=== PATIENT | female | born 1985 | race Caucasian/White ===

== ENCOUNTER 2017-04-03 21:18 | Emergency (ER) | payer MEDICAID ==
--- NOTE | 2017-04-03 21:22 | ED Physician Chart ---
Chief Complaint/HPI - Patient Information Date Seen:: 04/03/17 Time Seen:: 21:21 Chief Complaint:: abdominal pain History of Present Illness:: 31-year-old female complains of acute, constant, worse with bowel movement, aching, moderate to severe, radiating to the groin area, left lower quadrant abdominal pain 3 days. Has associated nausea but no vomiting. Has had similar symptoms in the past and has had full workup but she is unsure what the diagnosis was. Says that with diet she's been to control her pain however she has not been following her diet for the past several weeks. Allergies:: Allergies Allergy/AdvReac Type Severity Reaction Status Date / Time MDX No Known Allergies - Nka Allergy Verified 12/10/15 13:16 Historian:: Patient Review:: Nurse's Note Reviewed Review of Systems - Review of Systems Other: Complete system review otherwise unremarkable except as noted in history of present illness. Past Medical History - Past Medical History Past Medical History: Other (unspecified GI disorder) Family History: None Social History: Smoker, No Alcohol, No Drug Use, Other Surgical History: other Psychiatricy History: None Medication: None Family Medical History - Family Member Mother History Unknown: Yes Ethnicity: Non- Physical Exam - Physical Examination Other:: INITIAL VITAL SIGNS: Reviewed by me GENERAL: Alert and interactive. No acute distress HEAD: Head is normocephalic and atraumatic EYES: EOMI. PERRL. No scleral icterus. No conjunctival injection ENT: Moist mucous membranes. NECK: Supple. No masses. Full range of motion RESPIRATORY: No tachypnea. Clear breath sounds bilaterally. No wheezing, rales, or rhonchi CV: Regular rate and rhythm. No murmurs, rubs, or gallops ABDOMEN: Soft, non-distended, left lower quadrant tenderness to palpation with guarding on deep palpation. No rebound. No masses. EXTREMITIES: No deformity. No cyanosis. No edema. SKIN: Warm and dry. No obvious rashes. NEUROLOGIC: Alert and oriented. Face is symmetric. Speech is normal. Moves all extremities equally. Motor and sensory distally intact. Labs/Radiology/EKG Results - Radiology Results Results: CT abdomen and pelvis without contrast Bullet shaped uterus Bilateral adnexal hypodensities consistent with ovarian cystic changes No other acute abnormalities ED Septic Shock - . Is Septic Shock (SBP<90, OR Lactate>4 mmol\L) present?: No Reassessment (Disposition) - Reassessment Reassessment:: Blood pressure was noted to be elevated over 120/80. There were no signs of hypertension. Discussed the findings with the patient and recommended that the patient follow up with the primary care physician regarding the elevated blood pressure. SMOKING CESSATION COUNSELING: I spent greater than 3 minutes at the bedside with the patient discussing the benefits of smoking cessation, including decreased risk of heart disease, lung cancer, and emphysema. We also discussed strategies for smoking cessation, including pharmaceutical options. The patient was also encouraged to follow up with the primary care physician for outpatient follow-up. Patient has left lower quadrant abdominal pain. She's had similar symptoms in the past. Today's workup is essentially unremarkable. She does have quite a bit of stool: However no acute findings. Labs essentially unremarkable. Receive intramuscular Toradol and intramuscular Bentyl. Also oral Tylenol. There was some symptom relief. We will recommend that she follow-up with her primary care physician in one to 2 days. May need further GI consultation. Give prescription for Bentyl. Return to ER precautions given. The patient says she understands and agrees with the plan. Reassessment Condition:: Improved - Diagnosis Diagnosis:: Acute left lower quadrant abdominal pain, unspecified Acute nausea Elevated blood sugar without the diagnosis of hypertension Tobacco abuse - Aftercare/Follow up Instructions Aftercare/Follow-Up Instructions:: Counseled pt regarding lab results/diagnosis & need follow up, Refer to Discharge Instructions Medication Prescribed:: Bentyl 20 mg by mouth - Patient Disposition Discharge/Transfer:: Home Time:: 22:53 Condition at Disposition:: Improved ED Discharge Plan - Patient Disposition Admit/Discharge/Transfer: PT DISCHARGED HOME Condition at Disposition: Improved Instructions: Abdominal Pain
[2017-04-03] MEDS ORDERED: Dicyclomine 10 mg/mL 2mL Amp IM STA (21:24)
[2017-04-03 21:42] LABS: % BASOPHILS 0.3 % (0.0-2.0); % EOSINOPHILS 1.6 % (0.0-5.0); % LYMPHOCYTES 26.5 % (20.0-50.0); % MONOCYTES 7.7 % (2.0-10.0); % NEUTROPHILS 63.9 % (40.0-80.0); HEMOGLOBIN 12.7 gm/dL (11.7-15.5); MEAN CELL VOLUME 75.5 fl (81-100); MEAN CORPUSCULAR HEMOGLOBIN 24.7 pg (27.0-31.0); MEAN CORPUSCULAR HGB CONC 32.7 pg (28.0-36.0); MEAN PLATELET VOLUME 9.1 fl; NEUTROPHILE ABSOLUTE 5.5 Th/cmm (1.8-8.0); PLATELET COUNT 251 Th/cmm (150-400); RED BLOOD COUNT 5.16 Mil/cmm (3.80-5.10); RED CELL DISTRIBUTION WIDTH 13.9 % (11.5-20.0); WHITE BLOOD COUNT 8.4 Th/cmm (4.8-10.8)
[2017-04-03] MEDS ORDERED: Dicyclomine 10 mg/mL 2mL Amp IM ONE (21:47)
[2017-04-03 21:54] LABS: URINE BILIRUBIN NEGATIVE (NEGATIVE); URINE BLOOD NEGATIVE (NEGATIVE); URINE GLUCOSE (UA) NEGATIVE (NEGATIVE); URINE KETONE NEGATIVE (NEGATIVE); URINE PROTEIN NEGATIVE (NEGATIVE); URINE UROBILINOGEN 0.2 E.U./dL (0.2 - 1.0)
[2017-04-03 21:57] LABS: ALB/GLOB RATIO 1.6 (1.0-1.8); ALKALINE PHOSPHATASE 74 U/L (34-104); AMYLASE SERUM 40 U/L (29-103); ANION GAP 8.5 (7.0-16.0); BILIRUBIN,TOTAL 0.9 mg/dL (0.3-1.0); BUN - UREA NITROGEN 13 mg/dL (7-25); BUN/CREATININE RATIO 16.3; CALCIUM SERUM 9.9 mg/dL (8.6-10.3); CARBON DIOXIDE 26.4 mEq/L (21.0-31.0); CHLORIDE 106 mEq/L (98-107); CREATININE - SERUM 0.8 mg/dL (0.6-1.2); GLUCOSE 126 mg/dL (70-105); LIPASE 16 U/L (11-82); POTASSIUM SERUM 3.9 mEq/L (3.5-5.1); SGOT 19 U/L (13-39); SGPT/ALT 24 U/L (7-52); SODIUM SERUM 137 mEq/L (136-145)
[2017-04-03 21:58] LABS: URINE BACTERIA FEW /hpf (NONE SEEN); URINE COLOR YELLOW; URINE EPITHELIAL CELLS FEW /lpf (FEW); URINE RBC 0-1 /hpf (0-5); URINE WBC 0-2 /hpf (0-5)
[2017-04-03 21:59] LABS: AMPHETAMINE URINE NEGATIVE (NEGATIVE); BARBITURATES URINE NEGATIVE (NEGATIVE); METHADONE URINE NEGATIVE (NEGATIVE)
--- NOTE | 2017-04-04 08:12 | Diagnostic Imaging Report ---
CT scan of the abdomen and pelvis without intravenous contrast History: Left lower quadrant pain Total DLP equals 514 CTDI equals 10.8 Axial sections were obtained from the xiphoid process down to the pubic symphysis. The liver demonstrates a normal size and contour. No focal lesions are seen. The spleen appears normal. No abnormalities are seen in the region of the pancreas. The kidneys appear normal bilaterally. There is evidence for enlarged uterus with a prominent endometrial canal. Hypodensity in the adnexa bilaterally might be consistent with ovarian cyst. Ultrasound examination would be helpful. Impression: Essentially unremarkable exam of abdomen, enlarged uterus question of the ovarian cysts. Ultrasound examination would be helpful
== END 2017-04-03 23:29 | disposition home or self-care (01) ==
LOC: ER 21:18
DX: R10.32 Left lower quadrant pain (principal); R11.0 Nausea; F17.200 Nicotine dependence, unspecified, uncomplicated; R03.0 Elevated blood-pressure reading, without diagnosis of hypertension
CPT/HCPCS: 99285; 96372 ×2; 99406; 74176; 36415; 80307; 85025; 81001; 82150; 81025; 83690; 80053; Q0162; J1885; J0500